=== PATIENT | male | born 1945 | race Caucasian/White ===

== ENCOUNTER → 2017-03-25 | Outpatient (CLI) | payer OTHER, MEDICARE ==
[2017-03-25 12:04] LABS: HEMATOCRIT 42.9 % (37.9-51.0); HEMOGLOBIN 13.4 g/dL (13.5-17.0); HGB HCT DIFFERENCE -2.7; MEAN CORPUSCULAR HEMOGLOBIN 23.9 pg (27.0-33.4); MEAN CORPUSCULAR HGB CONC 31.2 g/dL (32.0-36.0); MEAN CORPUSCULAR VOLUME 77 fl (80-97); RED CELL DISTRIBUTION WIDTH 16.8 % (11.5-14.0); WHITE BLOOD COUNT 11.8 10^3/uL (4.0-10.5)
[2017-03-25 12:04] LABS: APPEARANCE,URINE CLEAR; BILIRUBIN,URINE NEGATIVE (NEGATIVE); GLUCOSE, URINE 150 mg/dL (NEGATIVE); KETONES,URINE NEGATIVE (NEGATIVE); LEUKOCYTE ESTERASE,URINE NEGATIVE (NEGATIVE); NITRITE,URINE NEGATIVE (NEGATIVE); PROTEIN,URINE NEGATIVE (NEGATIVE); URINE SPECIFIC GRAVITY 1.012; UROBILINOGEN,URINE NEGATIVE mg/dL (<2.0)
[2017-03-25 12:31] LABS: ANION GAP 13 (5-19); BLOOD UREA NITROGEN 22 mg/dL (7-20); CALCIUM 9.8 mg/dL (8.4-10.2); CARBON DIOXIDE 27 mmol/L (22-30); CHLORIDE 97 mmol/L (98-107); CREATININE RESULT 1.19 mg/dL (0.52-1.25); GLUCOSE 175 mg/dL (75-110); POTASSIUM 5.2 mmol/L (3.6-5.0); SODIUM 136.7 mmol/L (137-145)
== END ==
LOC: OD 10:37
PROVIDERS: ATTEND Internal Medicine Nephrology
DX: I12.9 Hypertensive chronic kidney disease with stage 1 through stage 4 chronic kidney disease, or unspecified chronic kidney disease (principal); N18.2 Chronic kidney disease, stage 2 (mild); E11.9 Type 2 diabetes mellitus without complications
CPT/HCPCS: 36415; 80048; 81001; 85027

== ENCOUNTER → 2017-10-24 | Outpatient (CLI) | payer OTHER, MEDICARE ==
[2017-10-24 13:15] LABS: TRIGLYCERIDES 69 mg/dL (<150)
[2017-10-24 13:26] LABS: DIRECT LDL 67 mg/dL (<100)
== END ==
LOC: OD 11:57
PROVIDERS: ATTEND Internal Medicine Cardiovascular Disease
DX: E78.2 Mixed hyperlipidemia (principal)
CPT/HCPCS: 36415; 80061

== ENCOUNTER → 2019-08-18 | Outpatient (CLI) | payer OTHER, MEDICARE ==
[2019-08-18 09:32] LABS: HEMOGLOBIN 12.2 g/dL (13.5-17.0); MEAN CORPUSCULAR HEMOGLOBIN 24.7 pg (27.0-33.4); MEAN CORPUSCULAR VOLUME 75 fl (80-97); PLATELET COUNT 183 10^3/uL (150-450); RED BLOOD COUNT 4.94 10^6/uL (4.35-5.55); WHITE BLOOD COUNT 8.1 10^3/uL (4.0-10.5)
[2019-08-18 10:10] LABS: ALBUMIN 3.9 g/dL (3.5-5.0); ALKALINE PHOSPHATASE 55 U/L (38-126); ANION GAP 13 (5-19); ASPARTATE AMINO TRANSFERASE 31 U/L (17-59); BILIRUBIN,DIRECT 0.1 mg/dL (0.0-0.4); BILIRUBIN,TOTAL 0.3 mg/dL (0.2-1.3); BLOOD UREA NITROGEN 25 mg/dL (7-20); CALCIUM 9.4 mg/dL (8.4-10.2); CARBON DIOXIDE 24 mmol/L (22-30); CHLORIDE 102 mmol/L (98-107); CHOLESTEROL 123.98 mg/dL (0-200); GLUCOSE 85 mg/dL (75-110); POTASSIUM 4.1 mmol/L (3.6-5.0); TOTAL PROTEIN 6.5 g/dL (6.3-8.2); TRIGLYCERIDES 114 mg/dL (<150)
[2019-08-18 10:20] LABS: DIRECT LDL 60 mg/dL (<100)
[2019-08-18 11:06] LABS: FOLATE 10.5 ng/mL (>2.76)
== END ==
LOC: OD 08:04
PROVIDERS: ATTEND Physician Assistant
DX: E78.2 Mixed hyperlipidemia (principal); E83.42 Hypomagnesemia; E03.9 Hypothyroidism, unspecified; Z79.899 Other long term (current) drug therapy; I10 Essential (primary) hypertension; R41.3 Other amnesia
CPT/HCPCS: 36415; 80048; 80061; 80076; 82607; 82746; 83735; 84443; 85027

== ENCOUNTER → 2019-10-19 | Outpatient (CLI) | payer OTHER, MEDICARE ==
[2019-10-19 09:27] LABS: HEMATOCRIT 37.2 % (37.9-51.0); HEMOGLOBIN 12.1 g/dL (13.5-17.0); MEAN CORPUSCULAR HEMOGLOBIN 24.9 pg (27.0-33.4); MEAN CORPUSCULAR HGB CONC 32.6 g/dL (32.0-36.0); MEAN CORPUSCULAR VOLUME 77 fl (80-97); PLATELET COUNT 213 10^3/uL (150-450); RED BLOOD COUNT 4.86 10^6/uL (4.35-5.55); RED CELL DISTRIBUTION WIDTH 15.1 % (11.5-14.0); WHITE BLOOD COUNT 8.7 10^3/uL (4.0-10.5)
[2019-10-19 09:34] LABS: APPEARANCE,URINE CLEAR; BILIRUBIN,URINE NEGATIVE (NEGATIVE); COLOR,URINE YELLOW; GLUCOSE, URINE >=500 mg/dL (NEGATIVE); KETONES,URINE NEGATIVE (NEGATIVE); LEUKOCYTE ESTERASE,URINE NEGATIVE (NEGATIVE); NITRITE,URINE NEGATIVE (NEGATIVE); PROTEIN,URINE NEGATIVE (NEGATIVE); URINE SPECIFIC GRAVITY 1.026; UROBILINOGEN,URINE NEGATIVE mg/dL (<2.0)
[2019-10-19 09:56] LABS: IRON(TIBC) 76.5 ug/dL (49-181)
[2019-10-19 09:58] LABS: ANION GAP 13 (5-19); BLOOD UREA NITROGEN 30 mg/dL (7-20); CALCIUM 9.5 mg/dL (8.4-10.2); CARBON DIOXIDE 23 mmol/L (22-30); CHLORIDE 102 mmol/L (98-107); GLUCOSE 225 mg/dL (75-110); POTASSIUM 5.3 mmol/L (3.6-5.0)
[2019-10-19 10:07] LABS: UR PRO/CREAT RATIO RESULT 0.2 mg/mg (0.0-0.2); URINE CREATININE 49.7 mg/dL (22-328); URINE PROTEIN 10.9 mg/dL (<12)
[2019-10-19 10:27] LABS: FERRITIN 6.59 ng/mL (17.9-464.0)
== END ==
LOC: OD 08:46
PROVIDERS: ATTEND Internal Medicine Nephrology
DX: I12.9 Hypertensive chronic kidney disease with stage 1 through stage 4 chronic kidney disease, or unspecified chronic kidney disease (principal); N18.2 Chronic kidney disease, stage 2 (mild); E11.22 Type 2 diabetes mellitus with diabetic chronic kidney disease; D63.1 Anemia in chronic kidney disease; E87.6 Hypokalemia
CPT/HCPCS: 36415; 80048; 81001; 82570; 82728; 83540; 83550; 84156; 85027